=== PATIENT | female | born 1955 | race Caucasian/White ===

== ENCOUNTER 2024-08-28 12:33 | Outpatient (CLI) | payer MEDICARE, MEDICAID ==
[~2024-08-28 12:33] MED LIST: ALBU6.7H3 IH; ASPI81TA47 PO; ATOR20TA66 PO; FLUT1DIS7 INH; FOLI1TAB27 PO; LEVO500T2 PO; LISI10TA27 PO; LOPE-190; METO-395 PO; OMEP40CA21 PO; SUCR1ORA15 PO; THI100T PO; TICA90TA2 PO
--- NOTE | 2024-08-28 18:13 | RADIOLOGY REPORT ---
PROCEDURE: MR MRI HEAD INDICATION: OTHER SYMPTOMS AND SIGNS INVOLVING APPEARANCE AND BEHAVIOR EXAM DATE: 08/28/2024 12:49 PM COMPARISON: None TECHNIQUE: MRI of the brain without intravenous contrast. FINDINGS: Diffusion weighted images of the brain demonstrate no evidence of acute infarction. There is no evidence of acute intracranial hemorrhage, extra-axial collection, mass effect, midline s hift, herniation or hydrocephalus. [id number]-vp-tyxtigwh cerebral atrophy. Mild changes of chronic microvascular ischemic disease. There are no signal abnormalities on the susceptibility weighted sequences. The major vascular flow voids are present. Patchy opacification of the ethmoid sinuses. Patchy opacification of the bilateral mastoid air cells. The surrounding soft tissues and osseous structures are unremarkable. IMPRESSION: 1. No evidence of acute infarction, intracranial hemorrhage, mass effect or hydrocephalus. Mild-to-mo derate cerebral atrophy. Mild changes of chronic microvascular ischemic disease. Ethmoid sinus diseas e. Bilateral mastoid effusions. HS:Y
== END 2024-08-29 23:59 | disposition home or self-care (01) ==
LOC: MRI02 12:33
PROVIDERS: ATTEND Student in an Organized Health Care Education/Training Program
DX: I67.82 Cerebral ischemia (principal); R46.89 Other symptoms and signs involving appearance and behavior; J32.2 Chronic ethmoidal sinusitis; G31.9 Degenerative disease of nervous system, unspecified
CPT/HCPCS: 70551

== ENCOUNTER 2024-12-08 20:45 | Emergency (ER) | payer MEDICARE, MEDICAID ==
[2024-12-08 21:07] VITALS: BP 174/74; PULSE 87; RESP 16; TEMP 97.9; O2SAT 100
--- NOTE | 2024-12-08 21:40 | RADIOLOGY REPORT ---
EXAM: CT CT HEAD INDICATION: FALL W/ HEAD STRIKE, head injury TECHNIQUE: CT of the head without intravenous contrast. Radiation Dose Information: CT Dose: CTDI volume is 52.3 mGy. Dose-length product is 962.45 mGy*cm The dose indicators for CT are the volume Computed Tomography (CT) Dose Index (CTDIvol) and the Dose Length Product (DLP), and are measured in units of mGy and mGy-cm, respectively. These indicators are not patient dose, but values generated from the CT scanner acquisition factors. The report includes radiation exposure data for exposures received during this examination. COMPARISON: MR MRI HEAD on DOS: 08/28/24 FINDINGS: No acute territorial infarct, intracranial hemorrhage, or mass effect. There are global involutional changes with compensatory prominence of the ventricles and sulci. Patchy periventricular and subcorti davin white matter hypoattenuation is nonspecific but may be related to small vessel ischemic disease. The orbits are normal. Fluid levels are seen within the [id number]-[id number]-bkdp-left maxillary antra. Opa cification of several anterior ethmoid air cells. Small left frontal scalp hematoma without underlyi ng fracture. IMPRESSION: 1. No acute territorial infarct, intracranial hemorrhage, or mass effect. 2. Age-related involutional changes. Chronic microvascular changes. 3. Small left frontal scalp hematoma without underlying fracture. 4. Paranasal sinus disease as detailed. 5. If clinical symptoms persist, MRI may be beneficial in further evaluation.
--- NOTE | 2024-12-08 23:24 | Physician Documentation ---
History of Present Illness ~ Chief Complaint: Head Injury Stated Complaint: FALL Time Seen by MD: 23:23 OK to notify your PCP?: Yes Primary Medical Doctor: Shai MASTERS Patient presents to the emergency room after fall from head strike after tripping over a pipe. Son at bedside states that that has mother gets emotional at times on a daily basis and asked to come to the hospital. Today she was having another episode when she tripped over a pipe and strike her head. No loss of consciousness. No blood thinners. No neck pain. No other injuries Tetanus within 5 years?: Yes Medication Reconciliation Allergies: Coded Allergies: Penicillins (Verified Allergy, Unknown, 05/23/16) codeine (Verified Allergy, Unknown, 05/23/16) Scheduled Albuterol Sulfate (Proventil Hfa), 6.7 GM IH PRN, (Reported) Aspirin (Aspirin EC), 1 TABLET PO DAILY, (Reported) Fluticasone/Salmeterol (Advair 500-50 Diskus), 1 PUFFS INH Q12H, (Reported) Folic Acid* (Folic Acid*), 2 MG PO DAILY Levofloxacin (Levaquin), 1 TAB PO DAILY Lisinopril (Lisinopril), 5 MG PO DAILY, (Reported) Metoprolol Succinate (Metoprolol Succinate), 1 TAB PO DAILY, (Reported) Omeprazole (Prilosec), 1 CAP PO DAILY, (Reported) Sucralfate (Sucralfate), 10 ML PO TID, (Reported) Thiamine Hcl (Thiamine Hcl), 100 MG PO DAILY Ticagrelor (Brilinta), 90 MG PO BID, (Reported) Scheduled PRN Loperamide HCl (Imodium A-D), for diarrhea, (Reported) Miscellaneous Medications Atorvastatin Calcium (LIPITOR tablet), 20 MG PO, (Reported) Past Medical History Past Medical History: Coronary Artery Disease, Hypertension, Bronchitis, COPD, Arthritis Other Past Surgical History: CARDIAC STENT Alcohol Use: Abuse Drug Use: none Lives with: Family Lives In: Home Occupation: retired Review of Systems ROS All review of systems negative except as per HPI Physical Exam Vital Signs: Temperature: 97.9, Heart Rate: 87, Respiratory Rate: 16, BP: 174/74, Pulse Oximetry: 100 Oxygen Flow Rate: 0 Physical Exam General: Patient is awake, alert, oriented x4 in no acute distress and well appearing.~ Head: Normocephalic with hematoma noted to left forehead measuring 8 cm x 8 cm Eyes: Conjunctival normal. EOMI. PERRL. ENT: Mucous membranes moist. Neck: Supple, trachea is midline. No cervical midline tenderness Chest: Clear to auscultation bilaterally without rales, rhonchi, or wheezes. There is no accessory muscle use or retractions. Cardiac: RRR without murmurs, gallops, or rubs. Abd: Soft, nondistended, nontender, with normoactive bowel sounds. No guarding, rebound, or rigidity. Extremities: Normal strength. Normal range of motion. No deformities or edema. Progress Results/Orders Results/Orders Orders - JESSIKA VELEZ MD Ct Head (12/08/24 21:06) Completed Orders - JESSIKA VELEZ MD Ct Head (12/08/24 21:06) Vital Signs 12/08/24 21:07 Temp 97.9 Pulse 87 Resp 16 B/P (MAP) 174/74 Pulse Ox 100 O2 Flow Rate 0 Medical Decision Making Findings Patient presents to the emergency room after head strike. Differentials include but are not limited to epidural bleed, subdural bleed, intraparenchymal bleed, subarachnoid bleed, fractures, dislocations, soft tissue injury therefore CT scan was performed which was reassuring. Fall was provoked and he had not feel patient requires emergent labs. No cervical midline tenderness and he had not feel patient requires CT scan of her neck. Departure Disposition: HOME / SELF CARE / HOMELESS Impression: Primary Impression: Superficial bruising Condition: Stable Discharge Instructions: Contusion (Bruise) Referrals: NO PRIMARY CARE PROVIDER (PCP) Education Educated: Patient, Family Educated regarding: diagnosis, treatment, need for follow up Signature Scribe Signature: No scribe Attestation: The note accurately reflects work and decisions made by me.Jessika Velez MD 12/08/24 23:31 JESSIKA VELEZ MD Dec 08, 2024 23:24
== END 2024-12-09 00:03 | disposition home or self-care (01) ==
LOC: ER 20:46
DX: S00.83XA Contusion of other part of head, initial encounter (principal); I10 Essential (primary) hypertension; I25.10 Atherosclerotic heart disease of native coronary artery without angina pectoris; J44.9 Chronic obstructive pulmonary disease, unspecified; M19.90 Unspecified osteoarthritis, unspecified site; Z88.0 Allergy status to penicillin; Z88.5 Allergy status to narcotic agent; Z88.8 Allergy status to other drugs, medicaments and biological substances; W01.0XXA Fall on same level from slipping, tripping and stumbling without subsequent striking against object, initial encounter; Y93.89 Activity, other specified; Y92.89 Other specified places as the place of occurrence of the external cause; Y99.8 Other external cause status
CPT/HCPCS: 70450; 99284

== ENCOUNTER 2025-03-20 22:33 | Inpatient (IN) | payer MEDICARE, MEDICAID ==
[~2025-03-20] VITALS: Ht 162.6 cm; Wt 61.4 kg
--- NOTE | 2025-03-21 01:29 | RADIOLOGY REPORT ---
EXAM: CT CT HEAD INDICATION: Change in ambulation and balance. TECHNIQUE: CT of the head without intravenous contrast. Radiation Dose : 1. Head: CT Dose: CTDI volume is 54.64 mGy. Dose-length product is 1003.69 mGy*cm The dose indicators for CT are the volume Computed Tomography (CT) Dose Index (CTDIvol) and the Dose Length Product (DLP), and are measured in units of mGy and mGy-cm, respectively. These indicators are not patient dose, but values generated from the CT scanner acquisition factors. The report includes radiation exposure data for exposures received during this examination. COMPARISON: CT CT HEAD on DOS: 12/08/24, MR MRI HEAD on DOS: 08/28/24 FINDINGS: There is no evidence of acute intracranial hemorrhage, extra-axial collection, mass effect, midline shift, herniation or hydrocephalus. Increased prominence of the ventricles, sulci and cisterns consistent with sequelae of atrophic cortical volume loss. The lovett-white differentiation is intact. Moderate diffuse confluence periventricular and subcortical white matter hypoattenuation is nonspecific but may be related to small vessel ischemic disease. Bilateral maxillary and ethmoid mucosal sinus disease. The remaining visualized paranasal sinuses and mastoid air cells are clear. The surrounding soft tissues and osseous structures are unremarkable. IMPRESSION: 1. No acute intracranial abnormality. 2. Chronic sequelae of microangiopathy and atrophic cortical volume loss. Radiation optimization: All CT scans at this facility use at least one of these dose optimization techniques: automated exposure control mA and/or kV adjustment per patient size (includes targeted exams where dose is matched to clinical indication) or iterative reconstruction.
[2025-03-21 01:43] LABS: MEAN PLATELET VOLUME 9.1 FL (7.4-10.4); RED CELL DISTRIBUTION WIDTH 13.7 % (11.5-14.5)
[2025-03-21 01:49] LABS: INFLUENZA TYPE A ANTIGEN RAPID NEGATIVE (Negative); INFLUENZA TYPE B ANTIGEN RAPID NEGATIVE (Negative)
[2025-03-21 01:54] LABS: CREATININE 0.79 MG/DL (0.40-0.90); TOTAL CARBON DIOXIDE 26.3 MMOL/L (24-32); eCRCL 56 ML/MIN; eGFR 72 ML/MIN
--- NOTE | 2025-03-21 03:04 | Physician Documentation ---
History of Present Illness ~ Chief Complaint: Cold, cough & congestion Stated Complaint: L SIDE PAIN Time Seen by MD: 03:02 OK to notify your PCP?: Yes Primary Medical Doctor: Shai Source: patient, RN/, RN notes reviewed, old records Mode of Arrival: POV Exam Limitations: no limitations HPI This patient was doing perfectly fine with the son dropped her off at the brother's house over 72 hours ago. He just returned to town today picked up his mom and found her seeming a little bit disoriented confused and was now walking slow with a worse shuffle she normally uses a walker but she was shuffling and seemed to be falling to the left. Patient also seemed to have a right facial droop. Patient states she was congested no medications were given no Benadryl or decongestants. Patient states that she just does not feel right. She has significant dementia and forgets why she is here at this time. Son states she just does not appear normal at this time not sure what is wrong with her. Onset or change in behavior is unknown. Also the brother stated that she had some congestion but the caregiver patient's son another brother states that she does not seem to have any congestion. Patient was reporting some dizziness earlier as well. Medication Reconciliation Allergies: Coded Allergies: Penicillins (Verified Allergy, Unknown, 03/20/25) codeine (Verified Allergy, Unknown, 03/20/25) Scheduled Albuterol Sulfate (Proventil Hfa), 6.7 GM IH PRN, (Reported) Aspirin (Aspirin EC), 1 TABLET PO DAILY, (Reported) Fluticasone/Salmeterol (Advair 500-50 Diskus), 1 PUFFS INH Q12H, (Reported) Folic Acid* (Folic Acid*), 2 MG PO DAILY Levofloxacin (Levaquin), 1 TAB PO DAILY Lisinopril (Lisinopril), 5 MG PO DAILY, (Reported) Metoprolol Succinate (Metoprolol Succinate), 1 TAB PO DAILY, (Reported) Olanzapine (Olanzapine), 1 TAB PO HS, (Reported) Omeprazole (Prilosec), 1 CAP PO DAILY, (Reported) Sucralfate (Sucralfate), 10 ML PO TID, (Reported) Thiamine Hcl (Thiamine Hcl), 100 MG PO DAILY Ticagrelor (Brilinta), 90 MG PO BID, (Reported) Scheduled PRN Loperamide HCl (Imodium A-D), for diarrhea, (Reported) Miscellaneous Medications Atorvastatin Calcium (LIPITOR tablet), 20 MG PO, (Reported) Past Medical History Past Medical History: Coronary Artery Disease, Hypertension, Bronchitis, COPD, Arthritis Other Past Surgical History: CARDIAC STENT Alcohol Use: Abuse Drug Use: none Lives with: Family Lives In: Home Occupation: retired Review of Systems All Other Systems at this time: Reviewed and Negative Physical Exam Vital Signs: RN Vital Signs have been reviewed: Yes, Temperature: 97.6, Source: Oral, Heart Rate: 78, Respiratory Rate: 16, BP: 136/105, Pulse Oximetry: 99, Weight: 61.400 Physical Exam General: The patient is well developed, well nourished, nontoxic appearing and is in no acute distress. Baseline dementia Skin: [place], warm and dry with no rashes. HEENT: Head was normocephalic and atraumatic. Eyes - pupils equal, round, r eactive to light and accommodation, horizontal nystagmus noted. Extraocular movements were intact. Conjunctivae were nonicteric. The mouth and oropharynx were clear with moist mucous membranes. There were no pharyngeal exudates or erythema. Neck: Supple and nontender. There was no jugular venous distention, lymphadenopathy, thyromegaly or masses. Chest: Clear to auscultation bilaterally without wheezes, rales or rhonchi. No accessory muscle use. No dullness to percussion. Heart: Rate regular and rhythmic. S1, S2. No murmurs. Palpation of the chest wall was normal. No rubs or thrills. Abdomen: Soft, nontender and nondistended. Positive bowel sounds. No guarding or rebound. No hepatosplenomegaly or palpable masses. Extremities: No cyanosis, clubbing or edema. The patient moves all extremities. Pulses were equal and symmetric. Neurologic: Cranial nerves II-XII were intact. Sensation was intact to light touch throughout. Motor strength was 5/5 in all four extremities. Deep tendon reflexes were intact in both upper and lower extremities. Psychologic: The patient was oriented to person, place and time. The patient demonstrated appropriate judgement and insight. Progress Results/Orders Reviewed/noted all lab results: Yes Results/Orders Orders - DONI WILHELM MD Chest,Single View (03/21/25 03:15) Md To Page (03/21/25 03:16) Vl Carotid (03/21/25 03:23) Page Hospitalist (03/21/25 03:33) Fill Out Med Reconciliation (03/21/25 03:33) Normal Saline 1000ml (0.9% Sodium Chlori (03/21/25 04:00) Completed Orders - DONI WILHELM MD Chest,Single View (03/21/25 03:15) Aspirin 81mg Chew Tablet (Aspirin 81mg C (03/21/25 03:25) Ceftriaxone/[id number]-[id number] 1gm (Rocephin 1 (03/21/25 04:00) Potassium Cl Sr Tablet (K-Dur Tablet) (03/21/25 03:57) Medications Received in ER Medications (Trade) Dose Ordered Sig/Mariusz Route PRN Reason Start Time Stop Time Status Last Admin Dose Admin (aspirin 81MG chew tablet) 324 mg ONCE ONCE PO 03/21/25 03:25 03/21/25 03:26 DC 03/21/25 04:25 324 MG Ceftriaxone Sodium 50 ml @ 100 mls/hr ONCE ONCE IV 03/21/25 04:00 03/21/25 04:29 DC 03/21/25 04:28 100 MLS/HR (K-DUR tablet) 40 meq ONCE STAT PO 03/21/25 03:57 03/21/25 03:58 DC 03/21/25 04:25 40 MEQ Sodium Chloride 1,000 ml @ 150 mls/hr Q6H40M ONCE IV 03/21/25 04:00 03/21/25 10:39 03/21/25 04:27 150 MLS/HR Vital Signs 03/20/25 03/21/25 22:37 00:37 Temp 97.6 Pulse 83 78 Resp 16 16 B/P (MAP) 133/64 136/105 (115) Pulse Ox 98 99 Laboratory Tests Test 03/21/25 01:07 03/21/25 01:12 03/21/25 03:00 Influenza Type A Antigen Negative Influenza Type B Antigen Negative SARS-CoV-2 Antigen (Rapid) Negative White Blood Count 8.2 Red Blood Count 4.04 L Hemoglobin 12.8 Hematocrit 36.5 Mean Corpuscular Volume 90.3 Mean Corpuscular Hemoglobin 31.6 H Mean Corpuscular Hemoglobin Concent 35.0 Red Cell Distribution Width 13.7 Platelet Count 214 Mean Platelet Volume 9.1 Neutrophils (%) (Auto) 68.8 Lymphocytes (%) (Auto) 21.2 Monocytes (%) (Auto) 7.7 Eosinophils (%) (Auto) 1.7 Basophils (%) (Auto) 0.6 Neutrophils # (Auto) 5.6 Lymphocytes # (Auto) 1.7 Monocytes # (Auto) 0.6 Eosinophils # (Auto) 0.1 Basophils # (Auto) 0.0 CBC Comment Sodium Level 143 Potassium Level 3.4 L Chloride Level 108 H Carbon Dioxide Level 26.3 Anion Gap 9 Blood Urea Nitrogen 25 H Creatinine 0.79 Estimated GFR/1.73 m2 72 BUN/Creatinine Ratio 31.6 H Glucose Level 104 Calcium Level 8.3 L Total Bilirubin 0.6 Aspartate Amino Transf (AST/SGOT) 22 Alanine Aminotransferase (ALT/SGPT) 16 Alkaline Phosphatase 67 Total Protein 7.5 Albumin 3.7 Globulin 3.8 Albumin/Globulin Ratio 1.0 L Chemistry Comments Urine Specimen Description Cln catch midstream Urine Color Yellow Urine Clarity Clear Urine pH 6.0 Urine Specific [place] 1.025 Urine Protein Negative Urine Glucose (UA) Negative Urine Ketones Negative Urine Occult Blood Small Urine Nitrite Negative Urine Bilirubin Negative Urine Urobilinogen 0.2 Urine Leukocyte Esterase Negative Urine RBC 10-20 Urine WBC 5-10 H Urine Squamous Epithelial Cells Few Urine Bacteria Few Urine Mucus Few Urine Culture Indicated Indicated Volume Urine Centrifuged 10 ml Urine Comment Microbiology Date/Time Source Procedure Growth Status 03/21/25 03:20 Urine Clean Catch Midstream Urine Culture - Preliminary Culture received. Resulted Re-Evaluation Re-Evaluation : Re-Evaluation: Improved, Unchanged Progress Patient was seen and examined. Patient is given reassurance. Sons at bedside. Upon arrival patient was examined I did not appreciate a facial droop but the patient did seem confused at that time she has improved mentation now although she has a significant dementia. There was no signs of Lundberg's palsy no signs of facial droop no signs of weakness. She was re-evaluated at 3:20 a.m. with a formal exam and has no neurological symptoms. Patient also lacks URI symptoms. She is slow to answer questions she is also a 69-year-old who has not had any rest at this time. Patient takes aspirin at home. She is not on blood thinners. She was given an aspirin. Neurology consultation will be obtained. Patient most likely will need an MRI to rule out the possibility of a stroke. Also has a complaint of dizziness she denies tinnitus or history of vertigo. Patient may have some vertebral symptoms and will need an ultrasound. Patient's laboratory work was obtained CBC is within normal limits no leukocytosis or left shift. Patient's chemistry showed low potassium at 3.4. Otherwise mild dehydration with a BUN creatinine ratio of 31.6. Patient's urine had some hematuria with 10-20 RBCs 5-10 WBCs possible UTI but there was also squamous epithelial cells and may be a contaminant nevertheless patient received a g of Rocephin. Tele neurology was consulted patient will be admitted for possible stroke-like evaluation. Continuous engine monitor interpretation shows normal sinus rhythm heart rate 80s, no ectopy, normal, my interpretation. Pulse oximetry monitor interpretation shows normal oxygenation 98% room air, normal, my interpretation. EKG/XRAY/CT/US/VASC/MRI Chest X-Ray : Additional Comments CHEST RADIOGRAPH Indication: CHEST PAIN Technique: Single frontal view of the chest was obtained COMPARISON: None FINDINGS: Lines and Tubes: None Lungs: Small left pleural effusion and mild diffuse increased prominence of the pulmonary vasculature. The right lung is grossly clear. No pneumothorax. Cardiomediastinal contours: Unremarkable Bones: Unremarkable IMPRESSION: 1. Small left pleural effusion and mild pulmonary vascular congestion. : CT: head With Contrast?: No Impression EXAM: CT CT HEAD INDICATION: Change in ambulation and balance. TECHNIQUE: CT of the head without intravenous contrast. Radiation Dose : 1. Head: CT Dose: CTDI volume is 54.64 mGy. Dose-length product is 1003.69 mGy*cm The dose indicators for CT are the volume Computed Tomography (CT) Dose Index (CTDIvol) and the Dose Length Product (DLP), and are measured in units of mGy and mGy-cm, respectively. These indicators are not patient dose, but values generated from the CT scanner acquisition factors. The report includes radiation exposure data for exposures received during this examination. COMPARISON: CT CT HEAD on DOS: 12/08/24, MR MRI HEAD on DOS: 08/28/24 FINDINGS: There is no evidence of acute intracranial hemorrhage, extra-axial collection, mass effect, midline shift, herniation or hydrocephalus. Increased prominence of the ventricles, sulci and cisterns consistent with sequelae of atrophic cortical volume loss. The lovett-white differentiation is intact. Moderate diffuse confluence periventricular and subcortical white matter hypoattenuation is nonspecific but may be related to small vessel ischemic disease. Bilateral maxillary and ethmoid mucosal sinus disease. The remaining visualized paranasal sinuses and mastoid air cells are clear. The surrounding soft tissues and osseous structures are unremarkable. IMPRESSION: 1. No acute intracranial abnormality. 2. Chronic sequelae of microangiopathy and atrophic cortical volume loss. Radiation optimization: All CT scans at this facility use at least one of these dose optimization techniques: automated exposure control mA and/or kV adjustment per patient size (includes targeted exams where dose is matched to clinical indication) or iterative reconstruction. Medical Decision Making Additional information obtaine: old records Findings Patient is presenting with weakness leaning to the left although improving CVA versus TIA versus dehydration electrolyte abnormalities URI was also considered but no symptoms. Electrolyte abnormalities were seen metabolic encephalopathy. Differential Dx:Considerations: Include: Allergic rhinitis, Influenza, Otitis media, Peritonsillar abscess, Pharyngitis-Diphtheria, Pharyngitis-Streptoccal, Pharyngitis-Viral, Pneumonia, Pnuemonitis, Sinusitis, URI, Other Departure Disposition: 09 ADMITTED INPATIENT Admitted to Inpatient Unit: yes, to hospitalist Admission Level of Care: Med/Surg with Tele Impression: Primary Impression: Metabolic encephalopathy Additional Impressions: TIA (transient ischemic attack) Dehydration Hypokalemia Acute UTI (urinary tract infection) Pleural effusion Condition: Guarded Referrals: NO PRIMARY CARE PROVIDER (PCP) Education Educated: Patient, Family Educated regarding: diagnosis, treatment, need for follow up, other Signature Scribe Signature: , Attestation: The note accurately reflects work and decisions made by me.Doni Wilhelm MD 03/21/25 03:04 DONI WILHELM MD Mar 21, 2025 03:04
[2025-03-21 03:12] LABS: LEUKOCYTE ESTERASE ,URINE NEGATIVE (Neg); NITRITES, URINE NEGATIVE (Neg); OCCULT BLOOD,URINE SMALL (Neg)
[2025-03-21 03:18] LABS: UA COLLECTION TYPE CLN CATCH MIDSTREAM
[2025-03-21 03:20] LABS: MUCUS STRANDS FEW /LPF (Neg); SQUAMOUS EPITHELIAL CELL,UR FEW /LPF (FEW)
--- NOTE | 2025-03-21 03:38 | RADIOLOGY REPORT ---
CHEST RADIOGRAPH Indication: CHEST PAIN Technique: Single frontal view of the chest was obtained COMPARISON: None FINDINGS: Lines and Tubes: None Lungs: Small left pleural effusion and mild diffuse increased prominence of the pulmonary vasculature. The right lung is grossly clear. No pneumothorax. Cardiomediastinal contours: Unremarkable Bones: Unremarkable IMPRESSION: 1. Small left pleural effusion and mild pulmonary vascular congestion.
--- NOTE | 2025-03-21 03:56 | [facility] CONSULT REPORT ---
[facility] Procedure Note [facility] Procedure Note Consult [facility] Note # Demographics Consult Type: General Neurology Patient Location: Emergency Room First Name: Genevieve Last Name: Patsy Date of : 1955 Age: 69 Gender: Female Facility: [facility] Time of Initial Page (): 03/21/2025 03:28 First Contact with Site (): 03/21/2025 03:28 # HPI Chief Complaint: - confusion - Stroke-like symptoms History: 69-year-old female with a history of dementia who presents with altered mental status and reports of abnormal gait. Last seen normal around 03/18/25. She was dropped off at another family member's house on 03/18/2025. When picked up moustapha bravo, her son noticed she appeared confused and altered. He observed increased shuffling while using her walker, disorientation, and a tendency to fall to the left. He thought he noticed a right facial droop at one time, which prompted the visit to the emergency department. The patient is also complaining of cold and congestion symptoms. He also reports that her speech has been more "muffled" for the past week or so. Son also reports increased urination the past few days. Her son reports that with her dementia, she cannot bathe herself or cook for herself. She can feed herself. She needs 24/7 care at home. Last Known Normal: 03/18/2025 Associated Symptoms: - no headache - no dizziness # Scores Time of exam and NIHSS (): 03/21/2025 03:43 Level of Consciousness 1a: [0] = Alert; keenly responsive LOC Questions 1b: [0] = Answers both questions correctly LOC Commands 1c: [0] = Performs both tasks correctly Best Gaze 2: [0] = Normal Visual 3: [0] = No visual loss Facial Palsy 4: [0] = Normal symmetrical movements Motor Arm Left 5a: [0] = No drift Motor Arm Right 5b: [0] = No drift Motor Leg Left 6a: [0] = No drift Motor Leg Right 6b: [0] = No drift Limb Ataxia 7: [0] = Absent Sensory 8: [0] = Normal Best Language 9: [0] = No aphasia Dysarthria 10: [0] = Normal Extinction and Inattention 11: [0] = No abnormality NIHSS Total: 0 # Data Time Head CT personally read by me ([place] Time): 03/21/2025 03:[address]: - no bleed - per radiologist read # Assessment Impression: - Other - Slow gait in the setting of known dementia. Could be a UTI ? though no WBC or fever. She has no focal neurological deficits on my examination; however, son states that her gait is still off. Reasonable to get MRI Brain wo to r/o an acute storke. # Plan Thrombolytic/Intervention: NOT IV Thrombolysis or IA Intervention candidate Thrombolytic Exclusion: > 4.5 hours Intraarterial Exclusion: - clinical exam not consistent with presence of large vessel occlusion (LVO), can reconsider if LVO found on vascular imaging Labs: - ua - TSH - CBC - comprehensive metabolic panel Imaging: (urgency: routine): - MRI Brain without contrast Therapy/Evaluation: - PT/OT evaluation DVT Prophylaxis: - SCD Other: - If patient has any neurological deterioration please call me back immediately - I have discussed my recommendations with the referring provider - would not pursue stroke work-up if MRI is negative - Allow for permissive HTN (up to 220/110 mmHg) until MRI brain wo rules out a stroke. Additional Recommendations: - Please call back [facility] or in-house neurology if MRI shows an acute infarct for additional recommendations Disposition: observation # Logistics Attestation of consult completion: The patient is located at: [facility]. Facility staff participated in the visit. I performed this telemedicine visit from my offsite office utilizing interactive 2 way audio and visual telecommunication technology at the request of the onsite emergency room provider. Total time spent in telemedicine encounter: I spent 15 minutes reviewing clinical data and/or imaging, obtaining history, examining the patient, communicating with the onsite care team, and in preparation of this report. # Demographics First Name: Genevieve Last Name: Patsy Facility: [facility] Neuro Consult Order placed for: Yes GILES BUTLER MD Mar 21, 2025 03:56
[2025-03-21] MEDS ORDERED: OLAN5TAB75 PO (04:15)
[2025-03-21] MEDS: potassium Cl 20 mEq SR tablet PO STA (04:25)
[2025-03-21] MEDS: normal saline 1000ml 1,000 ML IV ONE (04:27)
[2025-03-21] MEDS: CefTRIAXone/D5W-Rocephin 1gm 50 ML IV ONE (04:28)
[2025-03-21] MEDS ORDERED: ondansetron/PF 4mg/2ml inj IV PRN (05:00)
[2025-03-21] MEDS ORDERED: magnesium Cl slow-release 64mg tablet PO PRN (05:00)
[2025-03-21] MEDS ORDERED: potassium Cl 40MEQ/1/2NS 520ml 520 ML IV PRN (05:00)
[2025-03-21] MEDS ORDERED: magnesium sulf-water 2g/50mL 50 ML IV PRN (05:00)
[2025-03-21] MEDS ORDERED: magnesium hydroxide 30ml (MOM) UD suspension PO PRN (05:00)
[2025-03-21] MEDS ORDERED: potassium Cl 20 mEq SR tablet PO PRN (05:00)
[2025-03-21] MEDS ORDERED: mag hydrox/Alum hydrox/simeth 30ml oral suspension PO PRN (05:00)
[2025-03-21] MEDS ORDERED: magnesium sulf-water 4G/100mL 100 ML IV PRN (05:00)
--- NOTE | 2025-03-21 05:04 | HISTORY AND PHYSICAL-Residence ---
History & Physical Providers to CC Resident Creating Document: RICCO STEWART, RES ~ History of Present Illness Primary Medical Doctor: Shai Reason for Admit\Complaint: CONFUSION History of Present Illness This is a 69-year-old female who was brought to the ED by her son with complaints of confusion. Patient likely has baseline dementia, is a very poor historian, says she does not know why she is here today. According to the ED records patient was doing perfectly fine when the son dropped her off at the brother's house over 72 hours ago. He just returned to town today picked up his mom and found her seeming a little bit disoriented confused and was now walking slow she normally uses a walker but she was shuffling and seemed to be falling to the left. Patient also seemed to have a right facial droop according to the son. She has significant dementia and forgets why she is here at this time. Son states she just does not appear normal at this time not sure what is wrong with her. Onset or change in behavior is unknown. Allergies: Coded Allergies: Penicillins (Verified Allergy, Unknown, 03/20/25) codeine (Verified Allergy, Unknown, 03/20/25) Home Medications Home Medications Active Levaquin (Levofloxacin) 500 Mg Tablet 1 Tab PO DAILY 5 Days Folic Acid* (Folic Acid) 1 Mg Tablet 2 Mg PO DAILY Thiamine Hcl 100 Mg Tablet 100 Mg PO DAILY Reported Olanzapine 5 Mg Tablet 1 Tab PO HS Brilinta (Ticagrelor) 90 Mg Tablet 90 Mg PO BID Do not stop medication unless instructed by prescriber. Must be on aspirin as well. Sucralfate 1 Gm/10 Ml Oral.susp 10 Ml PO TID Prilosec (Omeprazole) 40 Mg Capsule 1 Cap PO DAILY Metoprolol Succinate 25 Mg Tab.sr.24h 1 Tab PO DAILY Imodium A-D (Loperamide HCl) 2 Mg Capsule PRN Lisinopril 10 Mg Tablet 5 Mg PO DAILY Advair 500-50 Diskus (Salmeterol Xinafoate/Fluticasone) 1 Each Disk.w.dev 1 Puffs INH Q12H LIPITOR tablet (Atorvastatin Calcium) 20 Mg Tablet 20 Mg PO Aspirin EC (Aspirin) 81 Mg Tablet.dr 1 Tablet PO DAILY Proventil Hfa (Albuterol Sulfate) 6.7 Gm Hfa.aer.ad 6.7 Gm IH PRN Past Medical History Past Medical History According to the previous records 1 hypertension 2 COPD 3 coronary artery disease Past Surgical History Surgical History Comment According to the previous records- coronary angiogram and stent placement in April 2016 Past Social History Social History Comment Unable to obtain Smoking: Cigarettes Alcohol Use: Abuse Drug Use: None Lives with: Family Lives In: Home Occupation: retired ROS All Other Systems: Reviewed and Negative Exam Vitals: Vital Signs Date Time Temp Pulse Resp B/P (MAP) Pulse Ox O2 Delivery O2 Flow Rate FiO2 03/21/25 00:37 78 16 136/105 (115) 99 03/20/25 22:37 97.6 General: General: Awake, alert, not in acute distress HEENT: Conjunctive are pink, sclerae clear, no icterus, Neck: Supple, no JVD, no lymphadenopathy. Chest: Normal vesicular breath sounds heard, no wheezing, crackles. Cardiovascular: S1-S2 heard no gallops, no rubs, no murmurs Abdomen: soft, no tenderness, no guarding, no rigidity, no rebound tenderness Extremities: No edema, no cyanosis, peripheral pulsations intact Central Nervous System: No focal neurological deficits, no deviation of the mouth. Unable to examine gait. Sensations normal, normal motor strength in upper and lower extremity. Musculoskeletal: No joint swelling, deformities, inflammations, and no scoliosis and back tenderness Skin: Warm and dry. Diagnostic Data Last Recorded Lab Results: 03/21/25 0112 03/21/25 0112 Advance Care Planning Advanced Care plannin - 30 Minutes (Full code) Additional Plan Acute onset confusion Likely Metabolic encephalopathy Likely due to underlying UTI vs stroke vs TIA Dementia Patient currently oriented to time place person Vitals stable Electrolytes within the normal range except for mild hypokalemia Glucose normal Urine analysis positive for UTI CT head shows no acute intracranial abnormality Tele neuro was consulted in view of possible stroke and recommended- MRI of the brain to rule out stroke. MRI has been ordered please follow. Maintain Permissive hypertension to 220/110 until stroke has been ruled out. PT/OT evaluation NPO until Swallow evaluation Aspiration precautions U tox ordered follow up Echocardiogram, vascular ultrasound ordered. Patient on telemetry monitoring Mild hypokalemia- K-3.4 Patient on potassium replacement protocol UTI Urinalysis positive for UTI Started patient on ceftriaxone Code status: Full code DVT profile: SCD Diet: NPO until swallow eval Ricco Reddivari PGY-1 Harmeet Addendum #1 Neuro: Dementia with chronic cognitive impairment, Acute confusion/delirium, Possible facial droop; concern for acute stroke (TIA). Neuro evaluated already. Pt also with UTI so could be toxic metabolic as well. #2 CV: - Patient hemodynamically stable #3 Pulm: - Encourage incentive spirometer use to promote lung expansion and prevent atelectasis. - Maintain oxygen saturation >92%, adjust supplemental oxygen as necessary. #4 GI: - NPO #5 Renal: Hypokalemia, potassium replacement therapy - replete electrolytes as needed. #6 ID: Urinary tract infection with evidence of sepsis; initiate ceftriaxone and reassess antibiotic choice based on culture sensitivity results. #7 Endo: - Target fingerstick blood sugars between 150-180 mg/dL #8 Heme/Onc: - Monitor for bleeding tendencies and signs of thrombosis. Maintain hemoglobin levels above 7 g/dL and platelet counts greater than 10,000/mm. #9 PPx: - Continue chemical thromboprophylaxis to reduce the risk of deep vein thrombosis I saw this patient and completed a full visual exam via audio-visual HIPAA compliant technology. Date of Service: Mar 21, 2025 Billing Provider: KOLBY BHATT MD, PREETHI, RES Mar 21, 2025 05:04 KOLBY BHATT MD Mar 21, 2025 07:11
[2025-03-21 06:10] VITALS: BP 115/40; PULSE 66; RESP 16; TEMP 98.5; O2SAT 97
[2025-03-21] MEDS: K and/or MAG REPLACEMENT MC SCH (08:00)
[2025-03-21] MEDS: potassium Cl 20 mEq SR tablet PO PRN (08:09)
[2025-03-21] MEDS: docusate sod 100mg capsule PO SCH (08:09)
[2025-03-21 09:25] VITALS: RESP 16; O2SAT 97
[2025-03-21 09:36] LABS: ETHANOL < 10 MG/DL (<10)
[2025-03-21 10:00] VITALS: BP 135/43; PULSE 69; RESP 16; TEMP 97.5; O2SAT 99
[2025-03-21] MEDS ORDERED: DONE-46 PO (10:24)
[2025-03-21 10:41] LABS: PRO BRAIN NATRIURETIC PEPTIDE 194 PG/ML (0-125)
[2025-03-21] MEDS: normal saline 1000ml 1,000 ML IV SCH (10:52)
[2025-03-21 18:00] VITALS: BP 134/46; PULSE 71; RESP 15; TEMP 97.4; O2SAT 98
[2025-03-21 19:44] LABS: URINE AMPHETAMINE SCREEN NEGATIVE (Neg); URINE BARBITUATE SCREEN NEGATIVE (Neg); URINE BENZODIAZEPINES SCREEN NEGATIVE (Neg); URINE CANNABINOID SCREEN POSITIVE (Neg); URINE COCAINE SCREEN NEGATIVE (Neg); URINE METHADONE SCREEN NEGATIVE (Neg); URINE OPIATE SCREEN NEGATIVE (Neg); URINE PHENCYCLIDINE SCREEN NEGATIVE (Neg)
[2025-03-21 20:00] VITALS: RESP 15; O2SAT 98
[2025-03-21 22:00] VITALS: BP 102/60; PULSE 68; RESP 12; TEMP 96.2; O2SAT 97
[2025-03-22 02:00] VITALS: BP 111/54; PULSE 69; RESP 22; TEMP 97.5; O2SAT 96
[2025-03-22 05:00] VITALS: BP 124/51; PULSE 65; TEMP 98; O2SAT 96
[2025-03-22 05:53] LABS: MEAN PLATELET VOLUME 9.2 FL (7.4-10.4); RED CELL DISTRIBUTION WIDTH 13.6 % (11.5-14.5)
[2025-03-22 06:01] LABS: CHOL/HDL RATIO 3.4 (0.00-4.99); CREATININE 0.59 MG/DL (0.40-0.90); LDL CHOLESTEROL 89 MG/DL (50-100); TOTAL CARBON DIOXIDE 25.1 MMOL/L (24-32); eCRCL 76 ML/MIN; eGFR > 90 ML/MIN
[2025-03-22 07:07] VITALS: RESP 16
[2025-03-22] MEDS: CefTRIAXone/D5W-Rocephin 1gm 50 ML IV SCH (08:09)
--- NOTE | 2025-03-22 12:05 | VASCULAR REPORT ---
VASC VL CAROTID History: 10 Comparison: None Technique: Hernandez-scale, Color and Duplex Doppler imaging of the bilateral carotid systems was performed. Findings: Atherosclerotic plaque present in the carotid bulbs, Iutm-[id number]-ditd-right. The following flow velocities were obtained: Right Carotid System: ICA PSV: 109 cm/sec ICA PDV: 22 cm/sec ICA/CCA Ratio: 1.1 Left Carotid System: ICA PSV: 179 cm/sec ICA PDV: 41 cm/sec ICA/CCA Ratio: 1.8 Bilateral common carotid, external carotid arteries, and vertebral arteries are patent. IMPRESSION: Atherosclerotic plaque present in the carotid bulbs, Dvzw-pclfdoa-rnxe-right. Less than 50% stenosis of the right carotid system. Approximately 50-69% stenosis of the left carotid system.
[2025-03-22] MEDS: PNEUMOC 20-VAL CONJ-DIP CRM/PF 0.5 ML SYRINGE IMVAC ONE (15:10)
--- NOTE | 2025-03-22 17:16 | DISCHARGE SUMMARY-Residence ---
Discharge Summary Providers to CC Resident Creating Document: DAVID FLOWERS, RES ~ Discharge Summary Admission Diagnosis: Acute metabolic encephalopathy Hospital Course DATE OF ADMISSION: 03/21/2025 DATE OF DISCHARGE: 03/22/2025 Discharge Diagnosis\Comment: Acute metabolic encephalopathy likely 2/2 UTI or marijuana use Hypokalemia UTI Operations\Procedures: None Consultants: Tele neurologist Complications: None Condition on DC: Stable Continued Medications: Donepezil Hcl (Donepezil Hcl) 5 Mg Tablet 1 TAB PO HS Discontinued Medications: Olanzapine (Olanzapine) 5 Mg Tablet 1 TAB PO HS Discharge Summary: History of present illness This is a 69-year-old female who was brought to the ED by her son with complaints of confusion. Patient likely has baseline dementia, is a very poor historian, says she does not know why she is here today. According to the ED records patient was doing perfectly fine when the son dropped her off at the brother's house over 72 hours ago. He just returned to town today picked up his mom and found her seeming a little bit disoriented confused and was now walking slow she normally uses a walker but she was shuffling and seemed to be falling to the left. Patient also seemed to have a right facial droop according to the son. She has significant dementia and forgets why she is here at this time. Son states she just does not appear normal at this time not sure what is wrong with her. Onset or change in behavior is unknown. Hospital course This 69 years old patient with the baseline dementia was admitted symptoms of confusion, problem with balance. Tele neurology was consulted on the day of admission Initial CT ruled out any intracranial abnormality, carotid Doppler is negative and patient urinalysis was positive for bacteria and we started patient on IV ceftriaxone and the following day patient is awake and alert and reports no complaint and U tox show positive for marijuana and we held patient home med olanzapine in view of recent development confusion and problem with maintaining balance. And the day of the discharge patient is alert and awake and recommended strict marijuana and echocardiogram he has a normal, patient is recovered sooner than expected and fit for discharge Vital Signs Date Time Temp Pulse Resp B/P (MAP) Pulse Ox O2 Delivery O2 Flow Rate FiO2 03/22/25 07:07 16 Room Air 03/22/25 06:00 54 03/22/25 05:00 98.0 124/51 (75) 96 Laboratory Tests Test 03/21/25 01:07 03/21/25 01:12 03/21/25 03:00 03/21/25 09:04 Influenza Type A Antigen Negative Influenza Type B Antigen Negative SARS-CoV-2 Antigen (Rapid) Negative White Blood Count 8.2 X10'3 Red Blood Count 4.04 X10'6 Hemoglobin 12.8 g/dl Hematocrit 36.5 % Mean Corpuscular Volume 90.3 FL Mean Corpuscular Hemoglobin 31.6 PG Mean Corpuscular Hemoglobin Concent 35.0 g/dL Red Cell Distribution Width 13.7 % Platelet Count 214 X10'3 Mean Platelet Volume 9.1 FL Neutrophils (%) (Auto) 68.8 % Lymphocytes (%) (Auto) 21.2 % Monocytes (%) (Auto) 7.7 % Eosinophils (%) (Auto) 1.7 % Basophils (%) (Auto) 0.6 % Neutrophils # (Auto) 5.6 X10'3 Lymphocytes # (Auto) 1.7 X10'3 Monocytes # (Auto) 0.6 X10'3 Eosinophils # (Auto) 0.1 X10'3 Basophils # (Auto) 0.0 X10'3 CBC Comment Sodium Level 143 MMOL/L Potassium Level 3.4 MMOL/L Chloride Level 108 MMOL/L Carbon Dioxide Level 26.3 MMOL/L Anion Gap 9 Blood Urea Nitrogen 25 MG/DL Creatinine 0.79 MG/DL Estimated GFR/1.73 m2 72 ML/MIN BUN/Creatinine Ratio 31.6 Glucose Level 104 MG/DL Hemoglobin A1c 5.0 % Calcium Level 8.3 MG/DL Magnesium Level 2.2 MG/DL Total Bilirubin 0.6 MG/DL Aspartate Amino Transf (AST/SGOT) 22 U/L Alanine Aminotransferase (ALT/SGPT) 16 U/L Alkaline Phosphatase 67 IU/L Total Protein 7.5 G/DL Albumin 3.7 G/DL Globulin 3.8 G/DL Albumin/Globulin Ratio 1.0 Thyroid Stimulating Hormone (TSH) 3.13 ulU/ml Chemistry Comments Urine Specimen Description Cln catch midstream Urine Color Yellow Urine Clarity Clear Urine pH 6.0 Urine Specific Mousie 1.025 Urine Protein Negative mg/dl Urine Glucose (UA) Negative mg/dl Urine Ketones Negative mg/dl Urine Occult Blood Small Urine Nitrite Negative Urine Bilirubin Negative Urine Urobilinogen 0.2 E.U/dL Urine Leukocyte Esterase Negative Urine RBC 10-20 /HPF Urine WBC 5-10 /HPF Urine Squamous Epithelial Cells Few /LPF Urine Bacteria Few /HPF Urine Mucus Few /LPF Urine Culture Indicated Indicated Volume Urine Centrifuged 10 ml Urine Comment Ammonia < 10 UMOL/L Pro-B-Type Natriuretic Peptide 194 PG/ML Ethyl Alcohol Level < 10 MG/DL Test 03/21/25 18:57 03/22/25 05:03 Urine Opiates Screen Negative Urine Methadone Screen Negative Urine Fentanyl Screen Negative Urine Barbiturates Screen Negative Urine Phencyclidine Screen Negative Urine Amphetamines Screen Negative Urine Benzodiazepines Screen Negative Urine Cocaine Screen Negative Urine Cannabinoids Screen Positive Drug Screen Comment White Blood Count 5.1 X10'3 Red Blood Count 3.87 X10'6 Hemoglobin 12.1 g/dl Hematocrit 35.2 % Mean Corpuscular Volume 90.9 FL Mean Corpuscular Hemoglobin 31.2 PG Mean Corpuscular Hemoglobin Concent 34.4 g/dL Red Cell Distribution Width 13.6 % Platelet Count 186 X10'3 Mean Platelet Volume 9.2 FL Neutrophils (%) (Auto) 55.6 % Lymphocytes (%) (Auto) 29.7 % Monocytes (%) (Auto) 9.1 % Eosinophils (%) (Auto) 4.9 % Basophils (%) (Auto) 0.7 % Neutrophils # (Auto) 2.8 X10'3 Lymphocytes # (Auto) 1.5 X10'3 Monocytes # (Auto) 0.5 X10'3 Eosinophils # (Auto) 0.3 X10'3 Basophils # (Auto) 0.0 X10'3 CBC Comment Sodium Level 142 MMOL/L Potassium Level 3.9 MMOL/L Chloride Level 112 MMOL/L Carbon Dioxide Level 25.1 MMOL/L Anion Gap 5 Blood Urea Nitrogen 16 MG/DL Creatinine 0.59 MG/DL Estimated GFR/1.73 m2 > 90 ML/MIN BUN/Creatinine Ratio 27.1 Glucose Level 91 MG/DL Calcium Level 7.9 MG/DL Magnesium Level 2.0 MG/DL Total Bilirubin 0.8 MG/DL Aspartate Amino Transf (AST/SGOT) 21 U/L Alanine Aminotransferase (ALT/SGPT) 15 U/L Alkaline Phosphatase 56 IU/L Total Protein 6.4 G/DL Albumin 2.9 G/DL Globulin 3.5 G/DL Albumin/Globulin Ratio 0.8 Triglycerides Level 101 MG/DL Cholesterol Level 141 MG/DL LDL Cholesterol 89 MG/DL HDL Cholesterol 42 MG/DL Cholesterol/HDL Ratio 3.4 Chemistry Comments Physical examination General: Awake, alert, not in acute distress HEENT: Conjunctive are pink, sclerae clear, no icterus, Neck: Supple, no JVD, no lymphadenopathy. Chest: Normal vesicular breath sounds heard, no wheezing, crackles. Cardiovascular: S1-S2 heard no gallops, no rubs, no murmurs Abdomen: soft, no tenderness, no guarding, no rigidity, no rebound tenderness Extremities: No edema, no cyanosis, peripheral pulsations intact Central Nervous System: No focal neurological deficits, no deviation of the mouth. Unable to examine gait. Sensations normal, normal motor strength in upper and lower extremity. Musculoskeletal: No joint swelling, deformities, inflammations, and no scoliosis and back tenderness Skin: Warm and dry. Imaging at hospital Head CT- No acute intracranial abnormality. Chest x-ray-Small left pleural effusion and mild pulmonary vascular congestion. Carotid artery ultrasound-Atherosclerotic plaque present in the carotid bulbs, Kvsf-xmrzwsc-gbwq-right. Less than 50% stenosis of the right carotid system. Approximately 50-69% stenosis of the left carotid system. [id number], RVSP 43 mm Hg Discharge instructions follow up with PCP in a week, Discuss regarding Continuation of Olenzapine with primary care physician. Stict avoidance of marijuana Call 911 or come to ED if severe shortness of breath, chest pain develops *Problems/Diagnosis: (1) Urinary tract infection (2) Acute metabolic encephalopathy (3) Hypokalemia Status: Acute Total Time Spent on D/C: Up to 30 Minutes Addendum ucx positive for gpc, add levaquin Date of Service: Mar 22, 2025 Billing Provider: JOANN ROBERT MD Common Visit Codes: 37830-SUZ/OBS DISCH DAY >30min DAVID FLOWERS, RES Mar 22, 2025 17:12 JOANN ROBERT MD Mar 23, 2025 06:44
--- NOTE | 2025-03-22 17:36 | CARDIOLOGY REPORT ---
APPROVED REPORT EXAM: Comprehensive 2D, Doppler, and color-flow Echocardiogram. Patient Location: [address] Heart Rate: 60's bpm Rhythm: SINUS Indications SYNCOPE STENT x1 2017 DEMENTIA HYPTERTENSION COPD Central Supply Technician: NONE Previous echo: [facility] 05/23/2016 EF 60-65%, trIA, trTR, trMR, RVSP 35 mmHg 2D Dimensions RVDd 2.6 cm IVSd 1.1 (0.7-1.1cm) LVDd 4.4 cm PWd 1.1 (0.7-1.1cm) IVSs 1.5 (0.8-1.2cm) LVDs 3.0 (2.5-4.0cm) PWs 1.5 (0.8-1.2cm) LVOT Diameter 1.94 (1.8-2.4cm) LVEF(%) 61.7 (>50%) SV 56.7 ml CO 3.8 L/min M-Mode Dimensions Left Atrium(MM) 4.78 (2.5-4.0cm) Aortic Root 2.64 (2.2-3.7cm) Aortic Cusp Exc 1.77 (1.5-2.0cm) Aortic Valve AoV Peak Omari. 144.7 cm/s AoV VTI 30.2 cm AO Peak GR. 8.4 mmHg AO Mean GR. 4 mmHg LVOT VTI 23.36 cm LVOT Peak Omari. 109.1 cm/s EDELMIRA(VTI)/BSA 2.29 cm2/m2 EDELMIRA (VTI) 2.29 cm2 AV DI 0.77 % Mitral Valve MV E Velocity 99.0 cm/s MV Peak Gr. 5 mmHg MV DECEL TIME 268 ms MV A Velocity 122.3 cm/s MV PHT 68 ms E/A Ratio 0.8 MVA (PHT) 3.24 cm2 MV VMax 106.6 cm/s TDI Lateral E' P. V 7.45 cm/s E/Lateral E' 13.3 Tricuspid Valve TR P. Velocity 289 cm/s RAP ESTIMATE 10 mmHg TR Peak Gr. 33 mmHg RVSP 43 mmHg Pulmonary Vein S1 Velocity 92.6 cm/s D2 Velocity 66.3 cm/s LEFT VENTRICLE Normal LV size and wall thickness. Overall systolic function is normal. LVEF is 60-65%. RIGHT VENTRICLE RV is normal size and function. Elevated right heart pressures with an RVSP of 43 mmHg. ATRIA Left atrium is moderately dilated. AORTIC VALVE Trileaflet AV appears mildly sclerotic without stenosis. Trivial insufficiency. MITRAL VALVE Mild MV annular calcification without stenosis. Trace regurgitation. TRICUSPID VALVE TV appears structurally normal with trace regurgitation. PULMONIC VALVE Normal PV without stenosis, physiologic insufficiency. GREAT VESSELS The aortic root is normal in size. PERICARDIUM Normal pericardium. No effusion. Other Information Study Quality: Adequate Conclusion Normal LV size and wall thickness. Overall systolic function is normal. LVEF is 60-65%. Left atrium is moderately dilated. Trileaflet AV appears mildly sclerotic without stenosis. Trivial insufficiency. Mild MV annular calcification without stenosis. Trace regurgitation. TV appears structurally normal with trace regurgitation. Normal pericardium. No effusion.
[2025-03-22] MEDS ORDERED: donepezil 5mg tablet PO SCH (21:00)
[2025-03-23] MEDS ORDERED: LEVO-65 PO (06:45)
== END 2025-03-22 18:28 | disposition home or self-care (01) | DRG 689 ==
LOC: ER 22:33 → ED HOLD 03-21 04:47 → ORTHO 4S 03-21 05:59
PROVIDERS: ADMIT Internal Medicine Pulmonary Disease; ATTEND Internal Medicine
DX: N39.0 Urinary tract infection, site not specified (principal); G93.41 Metabolic encephalopathy; J90 Pleural effusion, not elsewhere classified; I10 Essential (primary) hypertension; J44.9 Chronic obstructive pulmonary disease, unspecified; F03.90 Unspecified dementia, unspecified severity, without behavioral disturbance, psychotic disturbance, mood disturbance, and anxiety; Z20.822 Contact with and (suspected) exposure to COVID-19; E87.6 Hypokalemia; E86.0 Dehydration; F12.90 Cannabis use, unspecified, uncomplicated; I25.10 Atherosclerotic heart disease of native coronary artery without angina pectoris; Z95.5 Presence of coronary angioplasty implant and graft
CPT/HCPCS: 36415; 70450; 71045; 80053; 80061; 80305; 80320; 81001; 82140; 83036; 83735; 83880; 84443; 85025; 87081; 87088; 87804; 87811; 93306; 93880; 97161; 97530; 99285; G0378; J0696; J7030